=== PATIENT | female | born 1980 | race Two or more races ===

== ENCOUNTER 2020-09-09 17:28 | Outpatient (REF) | payer BC, SELFPAY | END 2020-09-09 17:29 | disposition home or self-care (01) | LOC: HO.LAB 17:28 | PROVIDERS: PCP Nurse Practitioner Adult Health; Visit Provider Internal Medicine | DX: Z20.828 Contact with and (suspected) exposure to other viral communicable diseases (principal) | CPT/HCPCS: 87635 ==